=== PATIENT | male | born 1990 | race Caucasian/White ===

== ENCOUNTER 2021-06-21 00:53 | Outpatient (CLI) | payer OTHER, SELFPAY ==
--- NOTE | 2021-06-21 08:45 | RT.EKG_ITS ---
APPROVED REPORT Exam: Resting ECG Reason for Exam: high risk med Patient Location: O HR:86 bpm ECG Measurements Heart Rate 86 AXIS NE 176 P 27 QRSd 97 QRS 52 QT 373 T 34 QTc 447 Conclusion Sinus rhythm...normal P axis, V-rate 60- 99 Normal Electrocardiogram
== END 2021-06-21 00:54 | disposition home or self-care (01) ==
LOC: RT 00:53
PROVIDERS: PCP Nurse Practitioner; Visit Provider Family Medicine
DX: Z51.81 Encounter for therapeutic drug level monitoring (principal)
CPT/HCPCS: 93005; 93010

== ENCOUNTER 2021-10-07 19:58 | Outpatient (REF) | payer OTHER, SELFPAY ==
[2021-10-07 18:21] LABS: *AMPHETAMINES SCREEN URINE Negative (Negative); *BARBITURATES SCREEN URINE Negative (Negative); *BENZODIAZEPINES SCREEN URINE Negative (Negative); Cannabinoids THC Negative (Negative); Cocaine Screen,Urine Negative (Negative); METHADONE URINE SCREEN Positive (Negative); OPIATES URINE SCREEN Negative (Negative)
[2021-10-07 18:23] LABS: Tricyclic Antidepressants Positive (Negative)
== END 2021-10-07 19:59 | disposition home or self-care (01) ==
LOC: LBN 19:58
PROVIDERS: PCP Nurse Practitioner; Visit Provider Nurse Practitioner
DX: R82.5 Elevated urine levels of drugs, medicaments and biological substances (principal)
CPT/HCPCS: 80307